=== PATIENT | male | born 2000 | race Caucasian/White ===

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

== ENCOUNTER 2022-09-17 10:17 | Emergency (ER) | payer BC, SELFPAY ==
[2022-09-17 10:18] VITALS: PULSE 70; RESP 14; TEMP 36.9; O2SAT 96; BMI 43.7
[2022-09-17 10:25] VITALS: BP 130/61
--- NOTE | 2022-09-17 10:30 | EDS_ITS ---
HPI History of Present Illness Chief Complaint: Back Detail of Chief Complaint: Back pain Informant: patient Narrative Narrative: Patient presents with low back pain that started yesterday around 11 AM. Patient states he was working outside carrying compost when he started feeling like his back was starting to tighten up. He continue to work and did not think much of it until he went inside and sneezed which caused severe excruciating pain. Patient states pain is in his low back and more on the left side. Denies any pain rating down the legs. He denies abdominal pain. He denies weakness to the extremities. EMS did medicate the patient with fentanyl. Currently he rates his pain a 2 or 3 out of 10. He had no urinary symptoms of dysuria or frequency or urgency or hematuria. Patient states he has had back pain issues in the past and normally would just go to the chiropractor. PFSH PFS Medical History (Updated 09/17/22 @ 11:[address] Marissa Torrez DO) Depression Home Medications diazepam 2 mg tablet (Valium) 2 mg PO TID PRN muscle spasm #10 tabs 09/17/22 [Rx Last Taken Unknown] escitalopram oxalate 10 mg tablet 10 mg PO DAILY 09/17/22 [History Last Taken Unknown] hydrocodone-acetaminophen 5-325mg 5mg-325mg 1 tab PO Q4H PRN PRN Pain 2 days #10 TABLETS 09/17/22 [Rx Last Taken Unknown] naproxen 500 mg tablet (Naprosyn) 500 mg PO BID PRN pain #20 tabs 09/17/22 [Rx Last Taken Unknown] Allergy/AdvReac Type Severity Reaction Status Date / Time No Known Allergies Allergy Verified 09/17/22 10:22 Surgical History (Updated 09/17/22 @ 10:23 by Afshan Tony RN) Hx of adenoidectomy Hx of tonsillectomy Social History Smoking Status: Never smoker ROS ROS ED Review of Systems ROS Unobtainable: other Constitutional Constitutional ED: Reports lethargy; Denies chills, fever(s), sweats or weight loss Eyes Eyes: Denies blurry vision, change in vision or diplopia ENT ENT ED: Denies rhinorrhea or sore throat Cardiovascular Cardiovascular: Denies chest pain, orthopnea or racing heartbeat Respiratory/Chest Respiratory/Chest: Denies cough, dyspnea, dyspnea on exertion, orthopnea or sputum Gastrointestinal Gastrointestinal: Denies abdominal pain, diarrhea, nausea or vomiting Genitourinary Genitourinary ED: Denies dysuria, hematuria or urinary frequency Musculoskeletal Musculoskeletal: Reports back pain; Denies arthralgias, myalgias or neck pain Integumentary Denies abscess, Abrasions or rash Neurologic Neurologic: Denies headache(s) or weakness Psychiatric Psychiatric: Denies anxiety, depression or suicidal thoughts Endocrine Endocrinology: Denies polydipsia, polyphagia or polyuria Hematologic/Lymphatic Hematologic/Lymphatic: Denies easy bleeding, easy bruising or lymphadenopathy Allergic/Immunologic Allergic/Immunologic ED: Denies mouth swelling, tongue swelling or urticaria EXAM Physical Exam Const Vital Signs: 09/17/22 10:18 09/17/22 10:25 Temperature 98.4 F Temperature Source Oral Pulse Rate 70 Respiratory Rate 14 Blood Pressure 130/61 H Blood Pressure Mean 84 Pulse Ox 96 Oxygen Delivery Method Room Air Positive well nourished and well developed General Appearance ED: well developed and NAD HEENT Reports TM's clear and moist mucous membranes normocephalic and atraumatic; Negative for trauma or tenderness Tympanic Membrane ED: Yes TM's clear Eyes PERRL and EOMs intact bilaterally General Eye ED: Negative for pale conjunctiva or scleral icterus Neck no lymphadenopathy, supple and no JVD General: Negative for tenderness Chest Wall inspection of chest normal and palpation of chest normal Chest: Negative for tenderness Resp normal respiratory effort and clear to auscultation bilaterally Effort and Inspection: Negative for respiratory distress or pain with movement Auscultation: Negative for rhonchi, wheezes or diminished lung sounds Cardio regular rate, regular rhythm, S1 normal heart sound, S2 normal heart sound and no murmurs Peripheral Pulses: pulses 2+ throughout GI normal to inspection, nondistended, normoactive bowel sounds, soft to palpation, non-tender, non-distended and no masses Back/Spine no CVA tenderness and no thoracic nor lumbar tenderness Back/Spine Narrative: No issues of his back reveals no evidence of soft tissue swelling or erythema or warmth. He has no real tenderness over the thoracic or lumbar spine. He does have some mild tenderness over the left lumbar paraspinal musculature with some spasm noted. Patient has pain in his back with straight leg raising on the left about 30 degrees but no pain down the leg. Deep tendon reflexes are plus 2 out of 4 bilaterally at the patella Achilles. Patient has normal L5 extension bilaterally. Patient has normal sensation to light touch bilaterally. Extremity normal to inspection General Extremety ED: Negative for edema General Extremity: Negative for edema Neuro oriented x3, CN's II-XII intact bilaterally, no sensory deficits noted and gait normal Sensorium / Orientation: awake, alert, oriented to person, oriented to place and oriented to time Motor Exam: strength 5/5 throughout and strength abnormal Psych mental status grossly normal Skin no rashes or lesions noted and no wounds MDM MDM MDM Narrative Medical decision making narrative: Patient with back pain that started yesterday after moving buckets of compost. Clinically I suspect back muscle spasm. I will obtain a urinalysis to evaluate for infection or blood. Patient was given Valium 5 mg p.o. I do not feel any imaging is indicated as there has been no fall or trauma to his back. Clinically I do not suspect a kidney stone. Patient urinalysis was normal. I did give him a dose of Valium 5 mg p.o. and he is feeling markedly improved. At this time I suspect likely muscle spasm/lumbar strain. Will be given a prescription for naproxen, patient given a prescription for Valium and a few [place] for pain. Advised to follow-up with primary care physician 3 to 5 days. He is to return if worsening pain, weakness in extremities, change in bowel or bladder function, or condition worsen anyway. Lab Data Labs: Laboratory Results - last 24 hr 09/17/22 10:55 Urine Color Yellow Urine Clarity Clear Urine pH 6.0 Ur Specific [place] 1.020 Urine Protein 30 H Urine Glucose (UA) Normal Urine Ketones Negative Urine Occult Blood Negative Urine Nitrite Negative Urine Bilirubin Negative Urine Urobilinogen 1 H Ur Leukocyte Esterase Negative Urine RBC 0-5 SEEN Urine WBC 0-5 SEEN Ur Squamous Epith Cells 0 SEEN Urine Bacteria 0 SEEN Urine Mucus 0 SEEN Discharge Plan Triage Chief Complaint: Back ED Provider: Marissa Torrez Dx/Rx/DC Orders Clinical Impression: Back pain Instructions: ED Back Spasm, No Trauma Prescriptions: New hydrocodone-acetaminophen [hydrocodone-acetaminophen] 5-325 mg tablet 1 tab PO Q4H PRN PRN (Reason: Pain) 2 Days Qty: 10 0RF naproxen [Naprosyn] 500 mg tablet 500 mg PO BID PRN (Reason: pain) Qty: 20 0RF diazepam [Valium] 2 mg tablet 2 mg PO TID PRN (Reason: muscle spasm) Qty: 10 0RF No Action escitalopram oxalate 10 mg tablet 10 mg PO DAILY Label Comments: TAKE ONE TABLET BY MOUTH EVERY DAY Primary Care Provider: Darvin Gotti Referrals: Radha Wilkes PASelvinC [Non-Staff] - 3-5 Days Disposition Disposition: Home, Self Care
[2022-09-17] MEDS: diazePAM 5 MG Tablet PO (10:53)
[2022-09-17 10:58] LABS: Bacteria 0 SEEN /hpf (None Seen); Mucous, Urine 0 SEEN /hpf (<or=2+); Squamous Epithelial Cells - UA 0 SEEN /hpf (0-5)
[2022-09-17 11:07] LABS: Color, Urine Yellow (Yellow); Glucose, Dipstick Normal (Normal); Ketone-Dipstick Negative (Negative); Leukocyte Esterase-Dipstick Negative /ul (Negative); Nitrite-Dipstick Negative (Negative); Occult Blood-Urine Negative /ul (Negative); Protein-Dipstick 30 mg/dl (Negative); Urine Bilirubin Dipstick Negative (Negative); Urine Clarity Clear (Clear); Urine Urobilinogen 1 mg/dl (Normal)
[2022-09-17 11:26] LABS: Red Blood Cells-Urine 0-5 SEEN /hpf (0-5); White Blood Cells 0-5 SEEN /hpf (0-5)
[2022-09-17 11:47] VITALS: BP 125/68; PULSE 71; RESP 16; O2SAT 100
== END 2022-09-17 11:50 | disposition home or self-care (01) ==
PROVIDERS: Emergency Provider Emergency Medicine; PCP Physician Assistant; Visit Provider Emergency Medicine
DX: M54.50 Low back pain, unspecified (principal)
CPT/HCPCS: 81001; 99283